=== PATIENT | female | born 1980 | race Caucasian/White ===

== ENCOUNTER → 2020-06-24 | Outpatient (CLI) | payer BC ==
[2014-06-20 19:04] VITALS: BP 113/74
[~2020-06-24] MED LIST: EPI EZ PEN1 MG/ML IM; MULTIPLE VITAMI1 CAP PO; PREDNISONE20 MG PO
== END ==
LOC: LAB 08:27
PROVIDERS: Physician Assistant
DX: Z00.00 Encounter for general adult medical examination without abnormal findings (principal)

== ENCOUNTER → 2021-04-09 | Outpatient (CLI) | payer BC | LOC: LAB 08:05 | DX: N91.2 Amenorrhea, unspecified (principal) ==

== ENCOUNTER → 2021-07-03 | Outpatient (CLI) | payer BC ==
[2021-07-03 08:53] LABS: BASO # 0.04 K/mm3 (0.02-0.10); EOS # 0.16 K/mm3 (0.04-0.40); EOS % 1.8 % (1.0-5.0); HEMATOCRIT 41.2 % (37.0-47.0); HEMOGLOBIN 13.8 g/dL (12.5-16.0); MEAN CELL VOLUME 88 fl (78-100); MEAN CORPUSCULAR HEMOGLOBIN 29 pg (27-31); MEAN CORPUSCULAR HGB CONC 34 g/dL (33-37); MEAN PLATELET VOLUME 8.9 fl (7.4-10.4); MONO # 0.54 K/mm3 (0.20-0.80); NEU # 6.96 K/mm3 (1.40-6.50); PLATELET COUNT 279 K/mm3 (130-400); RED CELL DISTRIBUTION WIDTH 13.1 % (11.5-14.5); WHITE BLOOD COUNT 9.1 K/mm3 (4.8-10.8)
[2021-07-03 09:00] LABS: ALBUMIN 3.5 g/dL (3.5-5.0); POTASSIUM 4.3 mmol/L (3.5-5.1)
[2021-07-03 09:01] LABS: CALCIUM 9.1 mg/dL (8.3-10.5)
[2021-07-03 09:04] LABS: TOTAL BILIRUBIN 0.4 mg/dL (0.2-1.2)
== END ==
LOC: LAB 08:18
PROVIDERS: Physician Assistant
DX: Z00.00 Encounter for general adult medical examination without abnormal findings (principal); Z13.220 Encounter for screening for lipoid disorders; Z13.1 Encounter for screening for diabetes mellitus

== ENCOUNTER → 2023-08-18 | Outpatient (CLI) | payer BC ==
[2023-08-18 07:53] LABS: BASO # 0.04 K/mm3 (0.02-0.10); EOS # 0.13 K/mm3 (0.04-0.40); EOS % 2.4 % (1.0-5.0); HEMATOCRIT 38.4 % (37.0-47.0); HEMOGLOBIN 12.1 g/dL (12.5-16.0); LYMPH# 1.46 K/mm3 (1.50-4.00); MEAN CELL VOLUME 86 fl (78-100); MEAN CORPUSCULAR HEMOGLOBIN 27 pg (27-31); MEAN CORPUSCULAR HGB CONC 32 g/dL (33-37); MONO # 0.47 K/mm3 (0.20-0.80); NEU # 3.36 K/mm3 (1.40-6.50); PLATELET COUNT 316 K/mm3 (130-400); RED BLOOD COUNT 4.49 M/mm3 (4.10-5.30); WHITE BLOOD COUNT 5.5 K/mm3 (4.8-10.8)
[2023-08-18 08:01] LABS: TOTAL BILIRUBIN 0.5 mg/dL (0.2-1.2)
== END ==
LOC: LAB 07:37
PROVIDERS: Physician Assistant
DX: Z13.220 Encounter for screening for lipoid disorders (principal); Z13.29 Encounter for screening for other suspected endocrine disorder; K90.9 Intestinal malabsorption, unspecified

== ENCOUNTER → 2023-08-31 | Outpatient (CLI) | payer BC | LOC: MAMMO 08:25 | DX: Z12.31 Encounter for screening mammogram for malignant neoplasm of breast (principal); N64.89 Other specified disorders of breast ==

== ENCOUNTER → 2023-09-06 | Outpatient (CLI) | payer BC | LOC: MAMMO 08:00 | DX: N64.89 Other specified disorders of breast (principal) ==

== ENCOUNTER → 2023-09-13 | Outpatient (CLI) | payer BC | LOC: RAD 07:59 | DX: R92.8 Other abnormal and inconclusive findings on diagnostic imaging of breast (principal); Z98.890 Other specified postprocedural states | CPT/HCPCS: 15989; 15990; A4648 ==